=== PATIENT | female | born 1990 | race Caucasian/White ===

== ENCOUNTER 2018-07-15 07:59 | Outpatient (CLI) | payer OTHER ==
--- NOTE | 2018-07-15 10:30 | MRI ---
MRI LEFT SHOULDER WITHOUT CONTRAST: Date: 07/15/18 HISTORY: S46.912A, left shoulder pain. COMPARISON: None. FINDINGS: Biceps Tendon: Intact. Labrum: Intact. Rotator Cuff: Mild interstitial delamination type tearing of the infraspinatus tendon with some low grade tendinosi s. Moderate tendinosis of the supraspinatus tendon. Mild bursal surface fraying of the supraspinatus tendon. No full thickness perforation. Bones: Type II acromion. Mild degenerative disease at acromioclavicular joint. Normal glenoid version. Cartilage: Intact. No full thickness cartilage defect. Muscles: Muscle signal and bulk normal. IMPRESSION: 1. Some mild tendinosis and interstitial delamination type tears of the posterior fibers of infraspi natus tendon without a full thickness perforation. No bursal or articular surface extension. 2. Low grade tendinosis supraspinatus tendon. 3. Small subacromial/subdeltoid bursa effusion. 4. Intact labrum and articular cartilage. POS: [facility]
== END 2018-07-15 08:00 | disposition home or self-care (01) ==
LOC: MRI 07:59
DX: S46.912A Strain of unspecified muscle, fascia and tendon at shoulder and upper arm level, left arm, initial encounter (principal); M75.92 Shoulder lesion, unspecified, left shoulder

== ENCOUNTER 2019-05-25 12:57 | Outpatient (CLI) | payer OTHER ==
[~2019-05-25 12:57] MED LIST: EPINEPHrine 1 MG/ML AMP ONE; Gadobenate Dimeglumine 529 MG/1 ML (20ML VIAL) ONE; Iopamidol 300 61% 50 ML VIAL FS ONE; Lidocaine 1% PF 10 ML AMP ONE
--- NOTE | 2019-05-25 14:25 | RAD ---
XR Shoulder Rt Arthrogram History: Shoulder pain Comparison: None. Findings: Patient was brought to the fluoroscopy suite. All questions were answered. Informed consent was obtained. Timeout performed. Patient's right shoulder was prepped and draped in normal sterile fashion. Using fluoroscopic guidanc e after adequate anesthesia of the glenohumeral joint was accessed with a 22-gauge needle. 8 mL of contrast solution was instilled within the joint. The capsule is thickened and there is increased res istance. Impression: Technically successful fluoroscopic guided arthrogram for MRI.
--- NOTE | 2019-05-25 15:05 | MRI ---
MRI Upper Ext Jt Rt W Con History: Pain. Injury. M 25.511 Comparison: None. Findings: Biceps tendon: Extra articular and intra-articular biceps tendon is intact. Labrum: Intact Rotator cuff: No full-thickness tear. Moderate tendinosis supraspinatus and infraspinatus tendons wit h mild interstitial delamination at the the footprint. Subscapularis is intact. Cartilage: Intact Soft tissues: Moderate subacromial/subdeltoid bursa which does not contain administered intra-articul ar contrast. Bones: Type I acromion. Mild lateral acromial downsloping. Normal glenoid version. Muscles: Muscle signal and bulk is normal. Impression: 1. Intact labrum and biceps tendon. 2. Mildly advanced for age tendinosis and interstitial delamination of the supraspinatus tendon at th e footprint. 3. Mild lateral downsloping of the acromion narrowing the subacromial space with subsequent moderate subacromial/subdeltoid bursa effusion which does not contain intra-articular contrast.
== END 2019-05-25 12:58 | disposition home or self-care (01) ==
LOC: RAD 12:57
PROVIDERS: ATTEND Orthopaedic Surgery
DX: M25.511 Pain in right shoulder (principal); M75.81 Other shoulder lesions, right shoulder; M25.811 Other specified joint disorders, right shoulder
CPT/HCPCS: 23350; A9577; J0171; J2001; Q9967